=== PATIENT | female | born 1955 | race Caucasian/White ===

== ENCOUNTER → 2021-01-03 | Outpatient (CLI) | payer MEDICARE, OTHER ==
[~2021-01-03] MED LIST: ADULT LOW DOSE81 MG PO; CRESTOR40 MG PO; ELIQUIS2.5 MG PO; ENDOCET 10-3251 EACH PO; FARXIGA10 MG PO; GLIPIZIDE10 MG PO; GLUCOPHAGE1000 MG PO; HYDROCODON-ACE1 EAC6 PO; JANUVIA100 MG PO; K-TAB ER20 MEQ PO; LASIX 40 MG TAB40 MG PO; NEURONTIN800 MG PO; OMEPRAZOLE20 MG PO; OXYBUTYNIN CHLOR5 M1 PO; OZEMPIC1 MG/0.71 SQ; OZEMPIC1 MG/0.75 SQ; ROPINIROLE HCL1 MG PO; ZANAFLEX 4 MG TA4 MG PO; ZESTRIL10 MG PO
[2021-01-03 12:10] LABS: HEMOGLOBIN 14.2 gm/dl (12.3-15.3); RED BLOOD COUNT 4.6 M/UL (4.00-5.10); WHITE BLOOD COUNT 7.6 K/UL (4.5-11.0)
[2021-01-03 12:28] LABS: BUN/CREATININE RATIO 29 (0-10)
== END ==
LOC: OPSV2 10:00 → EDSTATUS 10:00 → OPSV2 10:50
PROVIDERS: Orthopaedic Surgery
DX: Z01.812 Encounter for preprocedural laboratory examination (principal); M16.11 Unilateral primary osteoarthritis, right hip
CPT/HCPCS: 36415; 80048; 83036; 85027; 87081; 93005

== ENCOUNTER → 2021-01-08 | Outpatient (CLI) | payer MEDICARE, OTHER ==
[2021-01-08 10:49] LABS: BUN/CREATININE RATIO 32 (0-10)
== END ==
LOC: LAB 09:30
PROVIDERS: Orthopaedic Surgery
DX: Z01.812 Encounter for preprocedural laboratory examination (principal); Z01.83 Encounter for blood typing
CPT/HCPCS: 80048; 86850; 86900; 86901

== ENCOUNTER 2021-01-09 06:24 | Inpatient (IN) | payer MEDICARE, OTHER ==
[~2021-01-09] VITALS: Ht 162.6 cm; Wt 103.4 kg
[~2021-01-09 06:24] MED LIST changes: -ELIQUIS2.5 MG PO; -ENDOCET 10-3251 EACH PO; -OZEMPIC1 MG/0.71 SQ; -OZEMPIC1 MG/0.75 SQ
[2021-01-09] MEDS ORDERED: OZEMPIC1 MG/0.71 SQ (07:03)
[2021-01-09] MEDS ORDERED: ENDOCET 10-3251 EACH PO (12:07)
[2021-01-09] MEDS ORDERED: ELIQUIS2.5 MG PO (12:07)
[2021-01-09] MEDS ORDERED: OZEMPIC1 MG/0.75 SQ (14:09)
[2021-01-10 06:25] LABS: RED BLOOD COUNT 3.76 M/UL (4.00-5.10); WHITE BLOOD COUNT 14.6 K/UL (4.5-11.0)
[2021-01-10 06:27] LABS: HEMOGLOBIN 11.5 gm/dl (12.3-15.3)
[2021-01-10 06:40] LABS: BUN/CREATININE RATIO 35 (0-10)
--- NOTE | 2021-01-10 12:06 | NUR ---
instructed patient on importance of picking up pain meds and blood thinners from home pharmacy. Follow up appointment scheduled. Verbalized understanding. Azra Voss R.N.
== END 2021-01-10 14:47 | disposition home health service (06) | DRG 470 ==
LOC: ZOBSOF 06:24 → M/S 13:47
PROVIDERS: ADMIT Orthopaedic Surgery
PROC: 0SR90JA Replacement of Right Hip Joint with Synthetic Substitute, Uncemented, Open Approach (ICD-10-PCS; principal; 2021-01-09 08:15)
DX: M16.11 Unilateral primary osteoarthritis, right hip (principal); M87.88 Other osteonecrosis, other site; Z68.41 Body mass index [BMI] 40.0-44.9, adult; E66.01 Morbid (severe) obesity due to excess calories; I10 Essential (primary) hypertension; E78.5 Hyperlipidemia, unspecified; E11.9 Type 2 diabetes mellitus without complications; Z20.822 Contact with and (suspected) exposure to COVID-19; F17.290 Nicotine dependence, other tobacco product, uncomplicated; G25.81 Restless legs syndrome; I25.10 Atherosclerotic heart disease of native coronary artery without angina pectoris; Z96.652 Presence of left artificial knee joint; Z79.01 Long term (current) use of anticoagulants; Z79.82 Long term (current) use of aspirin; Z79.4 Long term (current) use of insulin; Z79.899 Other long term (current) drug therapy; Z95.5 Presence of coronary angioplasty implant and graft; Z90.49 Acquired absence of other specified parts of digestive tract; Z85.828 Personal history of other malignant neoplasm of skin; Z82.49 Family history of ischemic heart disease and other diseases of the circulatory system
CPT/HCPCS: 36415; 73501; 73502; 76000; 80048; 82962; 85027; 86850; 86900; 86901; 97110; 97110-GP-CQ; 97116-GP-CQ; 97162; 97166; 97535; C1776; J0690; J1100; J1885; J2001; J2250; J2270; J2405; J2704; J2710; J3010; J3370; J7030; J7050; J7120

== ENCOUNTER → 2021-02-14 | Outpatient (CLI) | payer MEDICARE, OTHER ==
[~2021-02-14] MED LIST changes: +ELIQUIS2.5 MG PO; +ENDOCET 10-3251 EACH PO; +OZEMPIC1 MG/0.71 SQ; +OZEMPIC1 MG/0.75 SQ
== END ==
LOC: WCC 13:26
DX: T81.31XA Disruption of external operation (surgical) wound, not elsewhere classified, initial encounter (principal); E11.628 Type 2 diabetes mellitus with other skin complications; E66.01 Morbid (severe) obesity due to excess calories; I25.10 Atherosclerotic heart disease of native coronary artery without angina pectoris; I10 Essential (primary) hypertension; F17.290 Nicotine dependence, other tobacco product, uncomplicated; Z68.30 Body mass index [BMI] 30.0-30.9, adult; Z79.01 Long term (current) use of anticoagulants; Z79.891 Long term (current) use of opiate analgesic; Z79.84 Long term (current) use of oral hypoglycemic drugs; Z79.899 Other long term (current) drug therapy
CPT/HCPCS: G0463

== ENCOUNTER → 2021-02-21 | Outpatient (CLI) | payer MEDICARE, OTHER | LOC: WCC 14:27 | DX: T81.31XA Disruption of external operation (surgical) wound, not elsewhere classified, initial encounter (principal); E11.628 Type 2 diabetes mellitus with other skin complications; E66.01 Morbid (severe) obesity due to excess calories; I25.10 Atherosclerotic heart disease of native coronary artery without angina pectoris; F17.290 Nicotine dependence, other tobacco product, uncomplicated; I10 Essential (primary) hypertension; Z68.30 Body mass index [BMI] 30.0-30.9, adult; Z79.84 Long term (current) use of oral hypoglycemic drugs; Z79.82 Long term (current) use of aspirin; Z79.01 Long term (current) use of anticoagulants; Z79.891 Long term (current) use of opiate analgesic; Z79.899 Other long term (current) drug therapy ==